=== PATIENT | female | born 1935 | race Caucasian/White ===

== ENCOUNTER 2016-11-28 20:47 | Inpatient (IN) ==
[2016-11-28] MEDS ORDERED: Albuterol 2.5 MG/3 ML NEBULIZER IH PRN (23:35)
[2016-11-28] MEDS ORDERED: traMADol 50 MG TABLET PO PRN (23:35)
[2016-11-28] MEDS ORDERED: *HR* OxyCODONE Immed Rel 5 MG TABLET PO PRN (23:35)
[2016-11-29] MEDS ORDERED: *HR* Enoxaparin 60 MG/0.6 ML SYRINGE SQ SCH (06:00)
[2016-11-29 08:16] LABS: Basophils % 0.1 %; Eosinophils % 0.1 %; Immature Granulocytes % 4.6 % (0-4); Lymphocytes # 1.6 K/mcL (0.6-4.6); Lymphocytes % 6.4 %; Mean Corpuscular Hemoglobin 30.4 pg (28.0-33.3); Mean Corpuscular Volume 86.7 fL (83.0-100.0); Mean Platelet Volume 10.9 fL (9.4-12.4); Monocytes # 1.5 K/mcL (0.0-1.3); Nucleated Red Blood Cells 0.2 /100 WBC (0); Platelet Count 178 K/mcL (140-400); Red Blood Count 1.58 M/mcL (3.82-4.97); Red Cell Distribution Width 19.9 % (11.5-14.5); Segmented Neutrophils % 82.8 %
[2016-11-29 08:43] LABS: Calcium 9.1 mg/dL (8.6-10.8); Potassium 4.6 mEq/L (3.5-4.5)
[2016-11-29 08:49] LABS: Hematocrit 13.7 % (35.3-44.9)
[2016-11-29 08:54] LABS: Anisocytosis 1+ (Not Present)
[2016-11-29] MEDS ORDERED: Loratadine 10 MG TABLET PO SCH (09:00)
[2016-11-29] MEDS ORDERED: Folic Acid 1 MG TABLET PO SCH (09:00)
[2016-11-29] MEDS ORDERED: Calcium 500-Vit D3 PO SCH (09:00)
[2016-11-29] MEDS ORDERED: Famotidine 20 MG TABLET PO SCH (09:00)
[2016-11-29] MEDS ORDERED: Aspirin Enteric Coated 81 MG Tablet PO SCH (09:00)
[2016-11-29] MEDS ORDERED: Furosemide 40 MG TABLET PO SCH (09:00)
[2016-11-29 09:16] LABS: Hemoglobin 4.8 g/dL (11.5-15.4)
[2016-11-29 09:19] LABS: Activated Partial Thrombo Time 52.1 Seconds (26.0-36.0); INR 1.7; Prothrombin Time 18.2 Seconds (9.4-12.1)
[2016-11-29] MEDS ORDERED: Levofloxacin 750 MG/150 ML 750 MG/150 ML BAG IVPB SCH (10:00)
[2016-11-29] MEDS ORDERED: Beclomethasone 80mcg MDI IH SCH (10:00)
[2016-11-29 11:43] VITALS: BP 80/40
--- NOTE | 2016-11-29 14:39 | Internal Med History&Physical ---
Date of Encounter: 11/29/16 Time of Encounter: 14:00 Assessment and Plan (1) Anemia Status: Acute Qualifiers: Anemia type: other cause Other causes of anemia: acute posthemorrhagic Qualified Code(s): D62 - Acute posthemorrhagic anemia (2) Cancer Status: Acute (3) Delirium Status: Acute (4) Fracture cervical vertebra-closed Status: Acute Qualifiers: Qualified Code(s): S12.9XXA - Fracture of neck, unspecified, initial encounter Internal Medicine - H&P: HPI History of present illness: Ms. Carlos is a 81 year old female transferred here late last evening with a history of C1 fracture with pain and immobility. I was not involved in approval for her transfer here from [facility]. Upon arrival, she was monaning but otherwise relatively unresponsive as per history from her daughter. 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 She was uncertain about the nature of her C! fracture as to whether there were mets to that area, or rnot. She stated, "We have still not talked with the oncologist" meaning that she was uncertain as to optioins, prognosis, or long-term treatment plans, code status, etc. She has power of attroney and is next of kin. She was found to have a hemoglobin per records of the other hospital of the 6 range and had recived three untis of packed RBCs. This morning, she developed worsening hypotension (down for 95 systolic) into the upper 80s a0s and her lab noted a hemoglobin of 4.8.. Given this i, in conjunction with nursing, contacted her daughter about her code status and consent for transfusion. She was ordered two units of transfusion PRBCs and I contacted the transfer center at [facility], Dr. Charito cuellar. He agreed to accept in transfer. I had told him her vitals were not as severe as I suspected, given her low hemoglobin, bt I was addressing remotely so could not recall exactly. I spoke with nursing here after the conversation and at my instruction reported her condition to [facility] and she was to be taken in to ICU. In addition, her wBC was in the 14 rage a few days ago at the primary facility but janice to 16 yesterday and she was placed on oral Cipro. This morning, her WBC was in the 25 range (see below) and she couldn't take oral, so was switched to IV levofloxacin, empirically. Her daughter, Megan Mas, gave consent for transfusion as well as for change of her code status [id number] because her mother had expressed not wanting to be on a ventilator or cardic treatment other than support. WShe stated that because of her discussions with her mother, she was sure of her mother's desire for this. She had discussed this with her physician at [facility] but the code status had not been changed. Because of her severe condition and urgent transfer back to the primary facility , I was unable to see the patient before her departure. Past Med Surg Social Fam HX - Past Medical History Medical history: cancer, COPD, GERD, myocardial infarction, pulmonary embolus, renal disease, thyroid disease Psychiatric history: anxiety, depression - Past Surgical History Surgical History: orthopedic, other - Social History Smoking Status: Former smoker Smokeless Tobacco Status: No Alcohol use: none Drug use: none - Family History Mother History Unknown: Yes Living Status: Hx Family Respiratory Disorders: Yes Father History Unknown: Yes Living Status: Hx Family Cardiac Disorders: No Hx Family Respiratory Disorders: Yes Internal Medicine - H&P: Meds Albuterol Neb [Proventil Neb] 2.5 mg IH Q6HR PRN 04/30/16 [History] Albuterol Sulfate [Albuterol Inhaler] 2 puff IH Q6HR PRN 04/30/16 [History] Aspirin Enteric Coated [Aspirin EC] 81 mg PO DAILY 04/30/16 [History] Calcium Carbonate/Vitamin D3 [Calcium 500-Vit D3 200 Caplet] 2 tab PO DAILY [History] Escitalopram [Lexapro] 20 mg PO DAILY 04/30/16 [History] Ferrous Sulfate [Iron] 325 mg PO BIDWM 04/30/16 [History] Folic Acid 1 mg PO DAILY 04/30/16 [History] Furosemide [Lasix] 40 mg PO AD 04/30/16 [History] Gabapentin [Neurontin] 400 mg PO HS 04/30/16 [History] Levothyroxine [Synthroid] 100 mcg PO 0630 04/30/16 [History] Loratadine [Allergy Relief] 10 mg PO DAILY 04/30/16 [History] Quetiapine Fumarate [Seroquel] 100 mg PO HS 04/30/16 [History] Tramadol HCl [Ultram] 50 mg PO Q6HR PRN 04/30/16 [History] Ranitidine HCl [Zantac] 150 mg PO DAILY 08/25/16 [History] Ciprofloxacin [Cipro] 500 mg PO BID tab 09/01/16 [Rx] Budesonide [Pulmicort Flexhaler 180mcg] 2 puff IH BID 11/28/16 [History] Docusate [Colace] 100 mg PO BID 11/28/16 [History] Enoxaparin [Lovenox] 60 mg SQ Q12HR 11/28/16 [History] OxyCODONE Immed Rel [Roxicodone 5 MG] 5 mg PO Q4HR PRN 11/28/16 [History] 3 Allergy/AdvReac Type Severity Reaction Status Date / Time No Known Allergies Allergy Verified 11/28/16 23:26 All Systems PM: A 10-system review of systems was performed and is negative for pertinent findings except as documented above in the HPI. - Constitutional Vitals: Temp Pulse Resp BP Pulse Ox 98.1 F 88 18 80/40 93 11/29/16 11:34 11/29/16 11:34 11/29/16 11:34 11/29/16 11:34 11/29/16 07:58 Exam: Not examined Internal Med - H&P Results - Labs CBC & Chem 7: 11/29/16 08:00 11/29/16 08:00 Labs: Short CBC 11/29/16 Range/Units 08:00 WBC 25.3 H (4.3-11.1) K/mcL Hgb 4.8 L* (11.5-15.4) g/dL Hct 13.7 L* (35.3-44.9) % Plt Count 178 (140-400) K/mcL Neutrophils # 21.0 H (1.6-8.9) K/mcL BMP 11/29/16 08:00 Sodium 133 L Potassium 4.6 H Chloride 96 L Carbon Dioxide 26 BUN 56 H Creatinine 1.42 H Glucose 123 H Calcium 9.1
[2016-11-29] MEDS ORDERED: Gabapentin 400 MG CAPSULE PO SCH (21:00)
[2016-11-30] MEDS ORDERED: *HR* Enoxaparin 60 MG/0.6 ML SYRINGE SQ SCH (06:00)
== END 2016-11-29 11:55 | disposition short-term general hospital (02) | DRG 560 ==
LOC: INPGRE 22:40
PROVIDERS: ADMIT Internal Medicine; ATTEND Internal Medicine